=== PATIENT | male | born 1980 | race Two or more races ===

== ENCOUNTER 2019-03-18 04:37 | Inpatient (IN) | payer OTHER ==
[~2019-03-18] VITALS: Ht 167.6 cm; Wt 92.1 kg
[2019-03-18] MEDS ORDERED: MAG HYDROX/AL HYDROX/SIMETH 30 ML UDC PO PRN (05:30)
[2019-03-18] MEDS ORDERED: ONDANSETRON HCL/PF 4 MG/2 ML VIAL IVP PRN (05:30)
[2019-03-18] MEDS ORDERED: MAGNESIUM HYDROXIDE 30 ML UDC PO PRN (05:30)
[2019-03-18] MEDS ORDERED: ACETAMINOPHEN 325 MG TABLET PO PRN (05:30)
[2019-03-18] MEDS ORDERED: ZOLPIDEM TARTRATE 5 MG TABLET PO PRN (05:30)
[2019-03-18] MEDS ORDERED: TEMAZEPAM 15 MG CAPSULE PO PRN (05:30)
[2019-03-18] MEDS ORDERED: SIMV10TA6 PO (09:07)
[2019-03-18] MEDS ORDERED: GABA-534 PO (09:07)
[2019-03-18] MEDS ORDERED: AMLO10TA7 PO (09:07)
[2019-03-18] MEDS ORDERED: FLUT1BLS INH (09:07)
[2019-03-18] MEDS ORDERED: ALBU18HF2 IH (09:07)
[2019-03-18] MEDS ORDERED: TRAZ-214 PO (09:07)
[2019-03-18] MEDS ORDERED: LEVE100023 PO (09:07)
[2019-03-18] MEDS ORDERED: PARO40TA4 PO (09:07)
[2019-03-18] MEDS: PANTOPRAZOLE 40 MG TABLET.DR PO SCH ×2 (09:31→09:33)
[2019-03-18] MEDS: ASPIRIN 81 MG TAB.CHEW PO SCH (09:33)
[2019-03-18] MEDS: HYDROCODONE/APAP 5/325MG 1 EACH TABLET PO PRN (09:35)
[2019-03-18] MEDS ORDERED: LEVETIRACETAM (500MG) 1,000 MG in IV NS 0.9% 100 ML IV SCH (10:00)
--- NOTE | 2019-03-18 10:30 | NUR ---
MINGLE OPERATOR RECEIVING ADMISSION NOTES PATIENT RECEIVED VIA GURNEY TRANSPORT FROM [facility]. PATIENT ADMITTED FOR BREAKTHROUGH SIEZURE AND STATUS POST FALL. PATIENT A/OX2, AMBULATORY, NO SOB OR ACUTE DISTRESS NOTED. V/S: TEMP 97.9F, 148/96, HR 67, RR 20, 02 SAT 98%. PATIENT C/O OF MILD HEADACHE AND R SHOULDER PAIN. ON RA, LAC #20 IV SL INTACT AND PATENT. PATIENT RESTING COMFORTABLY, SAFETY MEASURES IN PLACE. CALL LIGHT WITHIN REACH. WILL CONTINUE TO MONITOR.
[2019-03-18] MEDS: IV NS 0.9% 1,000 ML IV PRN (11:03)
[2019-03-18 12:00] VITALS: BP 146/99
[2019-03-18 16:00] VITALS: BP 146/99
[2019-03-18] MEDS: HYDROCODONE/APAP 10/325MG 1 EA TABLET PO PRN (18:56)
--- NOTE | 2019-03-18 19:51 | NUR ---
INSPECTOR FINAL ASSEMBLY ELECTRICAL CLOSING NOTES PATIENT IN BED RESTING COMFORTABLY. PATIENT A/OX2, AMBULATORY, NO SOB OR ACUTE DISTRESS NOTED. LAC #20 IV SL INTACT AND PATENT. SAFETY MEASURES IN PLACE. CALL LIGHT WITHIN REACH. WILL CONTINUE TO MONITOR. CARE ENDORSED TO LOAN INTERVIEWER RN.
[2019-03-18 20:00] VITALS: BP 134/86
--- NOTE | 2019-03-18 21:49 | NUR ---
TELE1/RH PATIENT C/O HEADACHE 05/22 AND [place] IS NOT WORKING, CALLED [facility] LEFT MESSAGE.
--- NOTE | 2019-03-18 22:00 | NUR ---
TELE/RN DR. POSADAS CALLED INFORMED HIM ABOUT PATIENT'S REQUEST FOR STRONGER MEDICATION. NO NEW ORDER WAS RECEIVED.
[2019-03-18] MEDS: LEVETIRACETAM (500MG) 1,500 MG in IV NS 0.9% 100 ML IV SCH (22:33)
[2019-03-19] VITALS: BP 146/89
[2019-03-19] MEDS: HYDROCODONE/APAP 10/325MG 1 EA TABLET PO PRN ×3 (00:01→21:58)
--- NOTE | 2019-03-19 00:53 | NUR ---
TELE/RN PATIENT IS SLEEPING AT THIS TIME, AROUSABLE, APPEAR COMFORTABLE, NO SIGNS OF DISTRESS WAS NOTED, CALL LIGHT IN REACH, WILL CONTINUE TO MONITOR.
[2019-03-19 04:00] VITALS: BP 134/90
--- NOTE | 2019-03-19 06:11 | NUR ---
TELE/RN PATIENT IS AWAKE AT THIS TIME, COMFORTABLE, NO C/O PAIN, NO DISTRESS NOTED, ALL NEEDS ATTENDED AT THIS TIME, WILL CONTINUE TO MONITOR.
[2019-03-19 06:53] LABS: ALBUMIN 3.3 g/dL (3.4-5.0); BILIRUBIN,TOTAL 0.2 mg/dL (0.2-1.0); CALCIUM, SERUM 8.3 mg/dL (8.5-10.1); CREATININE 0.7 mg/dL (0.6-1.3); MAGNESIUM 2.1 mg/dL (1.8-2.4); PHOSPHORUS 3.6 mg/dL (2.5-4.9); POTASSIUM 3.6 mmol/L (3.5-5.1); TOTAL PROTEIN, SERUM 6.8 g/dL (6.4-8.2)
[2019-03-19 06:55] LABS: BASOPHILS % (AUTO) 0.5 % (0.0-2.0); EOSINOPHILS % (AUTO) 4.6 % (0.0-6.0); HEMATOCRIT 38 % (39-51); HEMOGLOBIN 13.1 g/dL (13.5-17.5); LYMPHOCYTES # (AUTO) 2.8 /CMM (0.8-4.8); MEAN CORPUSCULAR HGB CONC 34 g/dl (31.0-36.0); MEAN CORPUSCULAR VOLUME 87 fL (80-96); MONOCYTES # (AUTO) 0.3 /CMM (0.1-1.30); NEUTROPHILS # (AUTO) 2.8 /CMM (1.8-8.9); NEUTROPHILS % (AUTO) 44.9 % (43.0-81.0); PLATELET COUNT (AUTO) 254 /CMM (150-450); RED BLOOD CELL COUNT(AUTO) 4.43 MIL/uL (4.5-6.0); WHITE BLOOD COUNT (AUTO) 6.2 K/uL (4.3-11.0)
[2019-03-19 08:00] VITALS: BP 132/89
[2019-03-19] MEDS: IV NS 0.9% 1,000 ML IV PRN ×2 (08:44→21:59)
[2019-03-19] MEDS: ASPIRIN 81 MG TAB.CHEW PO SCH (08:44)
[2019-03-19] MEDS: LEVETIRACETAM (500MG) 1,500 MG in IV NS 0.9% 100 ML IV SCH ×2 (10:28→21:47)
[2019-03-19 12:00] VITALS: BP 140/85
[2019-03-19] MEDS ORDERED: ALBUTEROL FS 2.5 MG/0.5 ML VIAL.NEB NEB PRN (13:00)
[2019-03-19] MEDS ORDERED: TRAZODONE 50 MG TABLET PO PRN (13:00)
[2019-03-19] MEDS: PAROXETINE HCL 20 MG TABLET PO SCH (13:14)
[2019-03-19] MEDS: HYDROCODONE/APAP 5/325MG 1 EACH TABLET PO PRN ×2 (13:14→17:21)
[2019-03-19] MEDS: GABAPENTIN 300 MG CAPSULE PO SCH ×2 (13:14→16:47)
[2019-03-19] MEDS: AMLODIPINE BESYLATE 10 MG TABLET PO SCH (13:14)
[2019-03-19 16:00] VITALS: BP 146/94
[2019-03-19] MEDS: FLUTICASONE/VILANTEROL 1 EACH BLST.W.DEV IH SCH (16:47)
[2019-03-19] MEDS ORDERED: SIMVASTATIN 10 MG TABLET PO SCH ×2 (18:00)
--- NOTE | 2019-03-19 19:05 | NUR ---
RN MS OPENING NOTES RECEIVED PATIENT IN BED AWAKE ALERT AND ORIENTED X 4, ABLE TO MAKE NEEDS KNOWN, RESPIRATIONS EVEN AND UNLABORED WITH EQUAL RISE AND FALL OF CHEST, URINAL AT BEDSIDE AND KEPT WITHIN REACH, TOILETING OFFERED, MADE AWARE IF NEED TO USE RESTROOM TO USE CALL LIGHT, ORIENTED TO CALL LIGHT AND KEPT WITHIN REACH, PATIENT STATES HE UNDERSTANDS AND WILL CALL, MADE PATIENT AWARE IF PLACING BED ALARM FOR FALL/SEIZURE PRECAUTIONS AND IF FORGETS TO CALL, PATIENT DOES NOT WANT ALARM ON, WILL RESPECT WISH, STATES HE WILL CALL, SEIZURE PRECAUTIONS IN PLACE, SAFETY PRECAUTIONS IN PLACE, LOW BED AND LOCKED, IV SITE TO LEFT AC #20G INTACT AND PATENT IVF RUNNING ORDERED, ORIENTED TO STAFF AND DISCUSSED PLAN OF CARE, WILL CONTINUE TO MONITOR AND ATTEND TO NEEDS.
[2019-03-19 20:00] VITALS: BP 137/85
--- NOTE | 2019-03-19 21:58 | NUR ---
RN MS NOTES PATIENT COMPLAINT OF PAIN TO RIGHT LEG PAIN 9/10 ACHING REQUESTING FOR PAIN MEDICATION PATIENT AGREED TO NORCO 10/325 VS WNL PRN GIVEN ORDERED [facility] SEIZURE PRECAUTIONS IN PLACE, CALL LIGHT KEPT WITHIN REACH. WILL CONTINUE TO MONITOR FOR EFFECTIVENESS.
[2019-03-20 04:00] VITALS: BP 141/88
[2019-03-20 04:03] VITALS: BP 141/88
[2019-03-20] MEDS: HYDROCODONE/APAP 10/325MG 1 EA TABLET PO PRN (04:06)
--- NOTE | 2019-03-20 04:06 | NUR ---
RN MS NOTES PATIENT COMPLAINT OF PAIN TO RIGHT KNEE/LEG REQUESTING FOR PAIN MEDICATION STATES PAIN 7-8/10, NORCO 10/325MG PRN OFFERED, PATIENT AGREED, VS STABLE WNL, PRN NORCO GIVEN WILL MONITOR FOR EFFECTIVENESS, MADE AWARE OF POSSIBLE SIDE EFFECTS DENIES CONSTIPATION STATES HE HAD BM LAST NIGHT
--- NOTE | 2019-03-20 06:24 | NUR ---
RN MS CLOSING NOTES PATIENT IN BED AWAKE ALERT AND ORIENTED X 4, ABLE TO MAKE NEEDS KNOWN, RESPIRATIONS EVEN AND UNLABORED WITH EQUAL RISE AND FALL OF CHEST, URINAL AT BEDSIDE AND KEPT WITHIN REACH, TOILETING OFFERED, CALL LIGHT KEPT WITHIN REACH, FALL/SEIZURE PRECAUTIONS IN PLACE , SAFETY PRECAUTIONS IN PLACE, LOW BED AND LOCKED, IV SITE TO LEFT AC #20G INTACT AND PATENT IVF RUNNING ORDERED, NO REDNESS, NO INFILTRATION PRESENT, WILL CONTINUE TO MONITOR AND ATTEND TO NEEDS AND ENDORSE TO NEXT SHIFT , NO CHANGES THROUGHOUT SHIFT, NO SEIZURE ACTIVITY. PAIN MANAGED WITH PRN NORCO.
[2019-03-20 08:00] VITALS: BP_SYST 139; BP_SYST 145; BP_DIAS 86; BP_DIAS 96
[2019-03-20] MEDS: PAROXETINE HCL 20 MG TABLET PO SCH (08:52)
[2019-03-20] MEDS: ASPIRIN 81 MG TAB.CHEW PO SCH (08:52)
[2019-03-20] MEDS: PANTOPRAZOLE 40 MG TABLET.DR PO SCH (08:52)
[2019-03-20] MEDS: GABAPENTIN 300 MG CAPSULE PO SCH ×2 (08:53→13:56)
[2019-03-20 09:02] VITALS: BP 139/90
[2019-03-20] MEDS: AMLODIPINE BESYLATE 10 MG TABLET PO SCH (09:02)
[2019-03-20] MEDS: FLUTICASONE/VILANTEROL 1 EACH BLST.W.DEV IH SCH (09:02)
[2019-03-20] MEDS: LEVETIRACETAM (500MG) 1,500 MG in IV NS 0.9% 100 ML IV SCH (11:26)
--- NOTE | 2019-03-20 11:48 | NUR ---
Dr Angulo in and seen and examined patient and with orders for discharge. no signs of siezures nited
--- NOTE | 2019-03-20 14:00 | NUR ---
patient discharge by the help of the charge nurse, discharge instructions given by her and patient expressed understanding.discharge per wheelchair in stable fair condition, no siezures observed the whole shift
[2019-03-20] MEDS ORDERED: LEVETIRACETAM (250 MG) 250 MG TABLET PO SCH (21:00)
== END 2019-03-20 14:11 | disposition home or self-care (01) | DRG 53 ==
LOC: TELE1 08:46 → TELE-TD 03-19 → MEDSG1 03-19 12:29
PROVIDERS: ADMIT Nurse Practitioner Acute Care; ATTEND Nurse Practitioner Acute Care
DX: G40.909 Epilepsy, unspecified, not intractable, without status epilepticus (principal); S09.90XA Unspecified injury of head, initial encounter; G62.9 Polyneuropathy, unspecified; E78.1 Pure hyperglyceridemia; F32.9 Major depressive disorder, single episode, unspecified; J45.909 Unspecified asthma, uncomplicated; G47.00 Insomnia, unspecified; E66.9 Obesity, unspecified; Z68.32 Body mass index [BMI] 32.0-32.9, adult; J44.9 Chronic obstructive pulmonary disease, unspecified; I10 Essential (primary) hypertension; S01.511D Laceration without foreign body of lip, subsequent encounter; W19.XXXD Unspecified fall, subsequent encounter; Z79.899 Other long term (current) drug therapy; Z79.51 Long term (current) use of inhaled steroids
CPT/HCPCS: 36415; 70450-TC; 80048-TC; 80061-TC; 80076-TC; 83735-TC; 84100-TC; 85025-TC; 87081-TC; 92526; 92611-TC; 95819-TC; 97116-TC; 97530-TC; G0378; J1953; J3490; J7030